=== PATIENT | female | born 1940 | race African-American/Black ===

== ENCOUNTER 2016-09-10 16:32 | Emergency (ER) | END 2016-09-10 18:44 | disposition home or self-care (01) | DX: J20.9 Acute bronchitis, unspecified (principal); J45.909 Unspecified asthma, uncomplicated; Z87.891 Personal history of nicotine dependence ==

== ENCOUNTER → 2016-09-23 | Outpatient (CLI) | payer MEDICARE, OTHER ==
[~2016-09-23] MED LIST: ALBU8.5H3 IH; ALBU8.5H3 INH; AZIT250T94 PO; BUSP10TA2 PO; CETI10CA PO; DOCU-144 PO; ESOM20CA PO; FLUT16SP24 NASAL; FLUT9.9S NASAL; GABA300C16 PO; HYDR30CR91 RC; IBUP400T22 PO; LORA-404 PO; PARO20TA58 PO; PRED50TA PO; PROM5SYR2 PO; RANI150C11 PO; SERT-165 PO; TEMA30CA PO
--- NOTE | 2016-09-25 07:50 | RADRPT ---
PROCEDURE: XR Knee. CLINICAL INDICATION: Right knee pain. TECHNIQUE: Three views of the right knee are available for review. COMPARISON: 04/08/2016. FINDINGS: There is moderate osteoarthrosis involving the right medial tibial femoral compartment and patellofe moral compartment and mild osteoarthrosis involving the lateral tibio-femoral compartment with assoc iated with joint space narrowing, subchondral sclerosis and osteophytosis. No acute fracture or dislocation is seen. No radiopaque foreign body is identified. Alignment is a natomic. No significant soft tissue swelling is present. Small suprapatellar effusion is noted. IMPRESSION: 1. No acute fracture or dislocation is seen. 2. Moderate osteoarthrosis of medial tibial femoral compartment and patellofemoral compartment and mild osteoarthrosis involving the lateral tibio-femoral compartment. 3. Small suprapatellar effusion. RPTAT: QQ .Costa Ashley MD, Date Time Electronically viewed and signed by .Costa Ashley MD, on 09/25/2016 07:50 .N/
== END | disposition home or self-care (01) ==
LOC: HKI 14:59
PROVIDERS: ATTEND Orthopaedic Surgery
DX: M17.0 Bilateral primary osteoarthritis of knee (principal); M25.561 Pain in right knee
CPT/HCPCS: 20610; 73564; G0463; J1030

== ENCOUNTER → 2017-03-31 | Outpatient (CLI) | END | disposition home or self-care (01) | DX: M25.561 Pain in right knee (principal); M17.0 Bilateral primary osteoarthritis of knee | CPT/HCPCS: 77073; G0463 ==

== ENCOUNTER 2017-04-03 11:36 | Inpatient (IN) | payer MEDICARE, OTHER ==
--- NOTE | 2017-04-02 00:40 | PREOPHP ---
DATE OF ADMISSION: 04/03/2017 CHIEF COMPLAINT: Pain in her right knee duration 5 years. HISTORY OF PRESENT ILLNESS: Approximately 5 years ago this patient tripped and fell, she injured her right knee. She has been having difficulty with it ever since. She has been seen in consultation by Dr. Dominguez, he feels that the patient needs a total right knee replacement because of severe arthritis. The patient accordingly presents to the hospital at this time for this procedure. FAMILY HISTORY: Mother at 97 of colon cancer. Father at 82 of a hemorrhage due to the fact he was taking Coumadin. The patient has one brother alive and well and four sisters alive and well. Mother of cancer of the colon and that is the only history of cancer in the family. No family history of liver cirrhosis. One sister has diabetes mellitus. SOCIAL HISTORY: The patient no longer smokes. She does not use alcoholic beverages excessively. PAST MEDICAL HISTORY: Serious accidents: The patient fell and injured her right knee 5 years ago. Serious illnesses: None. PAST SURGICAL HISTORY: Appendectomy at 22 years of age, cholecystectomy at age 72. MEDICATIONS: The patient takes the following drugs: Nortriptyline 10 mg daily, Lipitor 10 mg daily, Colace 100 mg twice a day, aspirin 81 mg daily, ranitidine 150 mg daily, ibuprofen 600 mg 3 times a day p.r.n. pain, Proctozone HC 2.5 percent rectal cream p.r.n. rectal irritation, Nitrostat 0.4 mg sublingually p.r.n. chest pain, Lumigan 0.01 percent eye drops. ALLERGIES: SHE IS ALLERGIC TO PENICILLIN. REVIEW OF SYSTEMS: CARDIOVASCULAR: The patient does not have hypertension. She does have hypotension and runs a low systolic blood pressure. No history of heart disease. The was seen in cardiac consultation for clearance for surgery by Dr. Ahmadi, her drafter topographical. RESPIRATORY: No history of pneumonia or tuberculosis. The patient does have asthma. GASTROINTESTINAL: The patient had peptic ulcer disease approximately 50 years ago. The patient had a cholecystectomy at age 72. No history of hepatitis, jaundice, pancreatitis, ileitis, colitis or hematemesis. The patient does have blood in her stool which she attributes to hemorrhoids. She had her last episode of blood in the stool approximately 3 months ago. The patient was advised to see a digital tech after she recovers from the surgery and have a colonoscopy. MUSCULOSKELETAL: No fractures of the bones. No history of CVA. No history of paralysis or comvulsions. No history of emotional disorder. No history of cystitis, [____], pyelonephritis or other general tract disorder. PHYSICAL EXAMINATION: GENERAL APPEARANCE: The patient is a well-developed female who does not appear acutely or chronically ill. VITAL SIGNS: Blood pressure is 97/57, pulse 86, temperature 97.6, respirations 16 per minute, weight 197 pounds. SKIN: No evidence of dermatitis. NECK: Supple. Thyroid is not palpable. HEAD: Head is symmetrical with no evidence of injury or deformity. EYES: PERRLA. EOMs normal. Discs flat. [____] is grossly intact. EAR/NOSE/THROAT: Clear. BREASTS: No masses. HEART: PMI in the left 5th intercostal space at the, left midclavicular line. No murmurs. No thrills. No bruits. A2 is greater than P2. No distention of jugular veins. No ankle edema. Under jugular reflex is not present. Chest clear to A and P. ABDOMEN: Liver, kidney and spleen not palpable. Bowel sounds are normal. There are no intra-abdominal masses or bruits. PELVIC/RECTAL: Deferred. [____] rectal approximately 8 months ago. Negative result. MUSCULOSKELETAL: Pain in the right knee. The patient did have a total right knee replacement because of an old injury 5 years ago with a fall. EXTREMITIES: Peripheral vascular no carotid or subclavian bruits. Femoral and dorsal pedal pulses normal and equal bilaterally. Posterior tibial pulses absent bilaterally. NEUROLOGIC: DTRs normal and equal bilaterally. Plantars are flexor. No pathological reflexes are present. The patient is well oriented to time, place and person. IMPRESSION: 1. Severe arthritis, right knee. 2. Hypotension. 3. History of anxiety reaction. 4. Gastrointestinal reflux disease. 5. Insomnia. 6. Hyperlipidemia. 7. Anemia. PLAN: The patient was cleared by her drafter topographical for the proposed surgery. Dictated By: Alberto Iraheta MD /akbar/quin /Document#: [id number]
[2017-04-03] VITALS (20 sets, daily range): BP systolic 90–127; BP diastolic 51–93; PULSE 80–88; RESP 15–28; Ht 170.2 cm; Wt 86.4 kg
[~2017-04-03] VITALS: Ht 170.2 cm; Wt 86.4 kg
[~2017-04-03 11:36] MED LIST changes: +BISA-57; +BUSP10TA2; +DOCU100C PO; +ESOM40CA PO; +FLUT16SP24 NS; +LORA-408; +LORA-408 PO; +OMEP20CA16; +PARO20TA58; +RANI150T5 PO; +TEMA30CA6; +VASOPRESSIN 20 UNITS INJ ONE; +albuterol; +albuterol inh; +ranitidine; +tramadol
[2017-04-03] MEDS: traMADol 50 MG TAB PO SCH ×2 (12:00→18:00)
[2017-04-03] MEDS ORDERED: VANCOMYCIN 1 GM/NS 250 ML X1 BEFORE INCISION IVPB SCH ×2 (12:38→14:30)
[2017-04-03] MEDS ORDERED: CELECOXIB 400 MG PO X1 DOSE PO SCH (13:00)
[2017-04-03] MEDS ORDERED: PREGABALIN 300 MG PO X1 PO SCH (13:00)
[2017-04-03] MEDS ORDERED: traMADOL 50 MG TAB X 1 DOSE PO SCH (13:00)
[2017-04-03] MEDS ORDERED: oxyCODONE (CR) 10 MG TAB [oxyCONTIN] X1 DOSE PO SCH (13:00)
[2017-04-03] MEDS ORDERED: BUPIVACAINE LIPOSOME/PF 266 MG/20 ML VIAL INFIL SCH (13:00)
[2017-04-03] MEDS ORDERED: ONDANSETRON 4 MG IV X 1 DOSE IV SCH (13:00)
[2017-04-03] MEDS ORDERED: PROPOFOL 20 ML ONE (14:04)
[2017-04-03] MEDS ORDERED: NEOSTIGMINE 3 MG/3 ML SYRINGE ONE (14:04)
[2017-04-03] MEDS ORDERED: FENTAnyl 50 MCG/ML VIAL ONE (14:04)
[2017-04-03] MEDS ORDERED: GLYCOPYRROLATE 0.4 MG INJ ONE (14:04)
[2017-04-03] MEDS ORDERED: CEFAZOLIN 1 GM INJ ONE (14:04)
[2017-04-03] MEDS ORDERED: ROCURONIUM 50 MG INJ ONE (14:04)
[2017-04-03] MEDS ORDERED: ONDANSETRON 4 MG INJ ONE (14:05)
[2017-04-03] MEDS ORDERED: PROPOFOL 100 ML ONE (14:05)
[2017-04-03] MEDS ORDERED: DEXAMETHASONE 4 MG/ML 1 ML INJ ONE (14:05)
[2017-04-03] MEDS ORDERED: ETOMIDATE 20 MG INJ ONE (14:05)
[2017-04-03] MEDS ORDERED: MIDAZOLAM 1 MG/ML 2 ML INJ ONE (14:05)
[2017-04-03] MEDS ORDERED: LACTATED RINGER'S 1,000 ML IV SCH (14:30)
[2017-04-03] MEDS ORDERED: SOD CHLORIDE 0.9% IVPB SCH (14:30)
[2017-04-03] MEDS ORDERED: SOD CHLORIDE 0.9% IV SCH (14:30)
[2017-04-03] MEDS ORDERED: PAIN COCKTAIL - VANCOMYCIN IRR SCH ×7 (14:30)
[2017-04-03] MEDS ORDERED: TRANEXAMIC ACID IV SCH (14:30)
[2017-04-03] MEDS ORDERED: TRANEXAMIC ACID IVPB SCH (14:30)
[2017-04-03] MEDS ORDERED: EXPAREL NOTE (BUPIVICAINE LIPOSOMAL) XX SCH (14:30)
[2017-04-03] MEDS ORDERED: VANCOMYCIN 1 GM INJ ONE ×3 (14:35→16:24)
[2017-04-03] MEDS ORDERED: POLYMYXIN B 500000 UNIT INJ ONE (14:35)
[2017-04-03] MEDS ORDERED: SODIUM CL BACTERIOSTATIC 30 ML INJ ONE (14:36)
--- NOTE | 2017-04-03 14:42 | HPN ---
Date/Time of Note Date/Time of Note DATE: 04/03/17 TIME: 14:42 Interval H&P Admission Note Pt. seen H&P reviewed: No system changes No changes from H&P on 04/01/17 by CASSIA Ann MD Apr 03, 2017 14:42
--- NOTE | 2017-04-03 14:52 | PDOCDIS ---
Discharge Instructions DIAGNOSIS Discharge Diagnosis s/p right anterior AMINAH CONDITION Patient Condition: Good HOME CARE INSTRUCTIONS: Diet Instructions: Regular ACTIVITY: Activity Restrictions: Slowly Increase Activity Rest between Activity Avoid heavy lifting Do not operate Machinery Do not operate Power Tool Avoid Heavy Housework Keep Limb Elevated Weight Bearing Bathing Restrictions: Shower FOLLOW UP/APPOINTMENTS Follow-up Plan follow up in the office on 04/14/17 KATHRIN ARMANDO PA-C Apr 03, 2017 14:51
[2017-04-03] MEDS ORDERED: BACITRACIN 50000 UNITS INJ IRR ONE (16:33)
[2017-04-03] MEDS ORDERED: VANCOMYCIN 1 GM INJ IVPB ONE (16:34)
[2017-04-03] MEDS ORDERED: ONDANSETRON 4 MG INJ IV PRN ×2 (17:30→18:00)
[2017-04-03] MEDS ORDERED: FENTAnyl 50 MCG/ML VIAL IV PRN ×3 (17:30)
[2017-04-03] MEDS ORDERED: DIPHENHYDRAMINE 50 MG INJ IV PRN (17:30)
[2017-04-03] MEDS ORDERED: MIDAZOLAM 1 MG/ML 2 ML INJ IV PRN (17:30)
[2017-04-03] MEDS ORDERED: LABETALOL HCL 20MG INJ IV PRN (17:30)
[2017-04-03] MEDS ORDERED: ALBUTEROL 0.083% (NEB) 2.5 MG/3 ML AMP HHN PRN (17:30)
[2017-04-03] MEDS ORDERED: hydrALAzine 20 MG INJ IV PRN (17:30)
[2017-04-03] MEDS ORDERED: EPHEDrine SULFATE 50 MG/5 ML SYG IV PRN (17:30)
[2017-04-03] MEDS ORDERED: MEPERIDINE 25 MG INJ IV PRN (17:30)
[2017-04-03] MEDS ORDERED: HYDROmorphONE (0.2 MG/ML) 10ML SYG IV PRN ×3 (17:30)
[2017-04-03] MEDS ORDERED: OXYCODONE/ACETAMINOPHEN (5/325) TAB PO PRN ×2 (17:30)
[2017-04-03] MEDS ORDERED: TRIMETHOBENZAMIDE 100 MG/ML VIAL IM PRN (17:30)
[2017-04-03] MEDS ORDERED: IPRATROPIUM (NEB) 0.5 MG/2.5 ML AMP HHN PRN (17:30)
--- NOTE | 2017-04-03 17:51 | OPR ---
Date/Time of Note Date/Time of Note DATE: 04/03/17 TIME: 17:47 Operative Report Procedure Description DATE: 04/03/2017 PREOPERATIVE DIAGNOSIS: Right knee osteoarthritis POSTOPERATIVE DIAGNOSIS: Right knee osteoarthritis OPERATION PERFORMED: Right total knee arthroplasty. SURGEON: Cassia Londono MD AREA MECHANIC: Jermaine Yuan PA-C COMPONENTS USED: DePuy Attune size 5 cruciate retaining femoral component, size 5 tibial baseplate, 6 mm polyethylene insert, 35 patellar button ANESTHESIA: Spinal plus general endotracheal intubation, plus periarticular injection ANESTHESIOLOGIST: Anthony Patel M.D. TOURNIQUET TIME: 54 minutes. ESTIMATED BLOOD LOSS: 50 cc INTRAVENOUS FLUIDS: 3,000 cc crystalloid SPECIMENS: Bone and soft tissue. DRAINS: Hemovac x1. COMPLICATIONS: None. DISPOSITION: The patient tolerated the procedure well and was taken to the recovery room in stable condition. INDICATIONS: The patient is a 76-year-old woman who has had worsening pain in the right knee with radiographic evidence of severe osteoarthritis. She has failed nonsurgical means of treatment to address her pain including activity modifications, pain medications, intra-articular injections, and ambulatory assist devices. Despite these measures she has had worsening pain. I felt the patient would benefit from a total knee arthroplasty. The risks, benefits, and alternatives of the procedure were explained in detail to the patient. I explained the risks of the surgery to include but not be limited to, bleeding and possible need for blood transfusion; infection; pain; stiffness; neurovascular injury with possible numbness, weakness, and/or paralysis anywhere from the knee down to the toes; fracture; instability; dislocation; wear and/or loosening of the prosthesis and possible need for future revision; blood clots; pulmonary embolism; and anesthetic complications such as heart attack, stroke, GI bleed, pneumonia, and/or . Ample time was allowed for the patient to ask questions, all of which were addressed and answered. The patient understood the risks involved and wished to proceed. Informed consent was signed prior to the procedure. PROCEDURE: The patient's right knee was initialed with a marking pen in the preoperative area to identify the correct operative site. The patient was brought to the operating room and transferred from the [facility] to the operating table where a spinal anesthetic was administered. The patient was then anesthetized and intubated. A Wesley catheter was placed. A timeout was performed to confirm that the right leg was the correct operative site. The patient was given 2 g of Ancef within one hour prior to the procedure. A tourniquet was placed on the operative proximal thigh. The operative knee and lower extremity were prepped and draped in the usual sterile fashion. The operative lower extremity was elevated and exsanguinated with an Esmarch tourniquet. The proximal thigh tourniquet was inflated to 300 mmHg. The knee was flexed. A midline incision was made and carried down through the subcutaneous tissue and fat with sharp dissection. Limited medial and lateral flaps were raised. A medium parapatellar approach was performed. Synovial fluid was normal in color and consistency. The patella was everted and the knee flexed. There were severe tricompartmental osteoarthritic changes noted. A medial release was performed at the joint line to the midcoronal plane. The ACL and remnants of the menisci were excised. The PCL was in tact and preserved. The stepped drill was used to open up the femoral canal which was irrigated and sucked dry. The intramedullary guide oscar was passed up the femur, and the distal cutting block was pinned into place for a 5 degree valgus cut, taking 10 mm of bone off distally. The oscillating saw was used to make the cut. The tibia was subluxed anteriorly. The tibial cutoff jig was placed over the center of the talus distally and over the junction of the medial and middle third of the tibial tubercle proximally. The guide was pinned into place and the oscillating saw was used to make the cut. The tibia was sized. The extension gap was checked and accommodated a 6 mm spacer block with the knee in full extension. There was no varus or valgus instability. At this point, the femur was sized with the posterior referencing guide. Two holes were drilled in 3 degrees of external rotation. The two holes were in line with the transepicondylar axis, perpendicular to Mecca's line, and in line with the tibial cutoff jig brought up with the knee flexed 90 degrees and tensed with 2 lamina spreaders, suggesting the femoral rotation was correct. The four-in-one cutting block was pinned into place. The anterior and posterior cuts and chamfer cuts were made with the oscillating saw. The flexion gap was checked and accommodated the 6 mm spacer block at 90 degrees. There was no varus or valgus instability, suggesting the flexion and extension gaps were now equal. The sulcus was cut out on the femur. The tibia was drilled and punched in proper rotation. Trial components were placed into position with a trial insert. The patella was cut down to 14 mm and sized. Three holes were drilled and the trial button placed in position. With all the trials now in place, the knee was taken through range of motion and came to full extension as evidenced by the fact that with the foot on my abdomen and axial loading, there was no tendency for the knee to flex. The knee was able to be flexed to 125 degrees with good patellar tracking with no lateral tilt or subluxation. At this point, I was satisfied with the overall range of motion, stability, and patellar tracking. The trials were removed. The real components were opened. Two bags of cement were mixed, one with and one without premixed antibiotic. The knee was irrigated with antibiotic saline and sucked dry. Once the cement was in a doughy stage, the real components were cemented into place. The knee was held in full extension, and the patellar component was held with a patellar clamp. All excess cement was removed with curettes. As the cement was hardening, the synovial/capsular layer was infiltrated with a mixture of 150 mg of 0.5% Bupivacaine, 8 mg of Duramorph, 300 mcg of epinephrine, 30 mg of Toradol, 100 mcg of clonidine, 750 mg of cefuroxime and 86 mL of normal saline, followed by an injection of 266 mg of liposomal Bupivacaine. A Hemovac drain was placed in the deep portion of the wound and brought out the anterolateral thigh. Once the cement was completely hardened, the trial liner was removed, and the real insert was opened. The tourniquet was let down, and there was good hemostasis. The knee was then irrigated with a mixture of betadine/saline and then antibiotic saline with pulsatile lavage. The real insert was impacted into the tibia and reduced onto to the femur. The arthrotomy was closed with a few interrupted #1 Ethibond in a figure-of- eight fashion, and then closed in a watertight fashion with a running #2 Stratafix suture. Knee flexion was checked against gravity and came to 125 degrees. The subcutaneous layer was irrigated and closed with 2-0 Statafix, and then 3-0 Vicryl and then rosemarie on the skin. The wound was covered with an occlusive dressing, and secured with cast padding and a bias dressing. The drain was secured with 3-0 nylon. The sponge and needle counts were correct at the end of the case. The patient was then awakened, extubated, and taken to the recovery room in stable condition. CASSIA LONDONO MD Apr 03, 2017 17:51
--- NOTE | 2017-04-03 17:53 | PN ---
Date/Time of Note Date/Time of Note DATE: 04/03/17 TIME: 17:52 Assessment/Plan Lines/Catheters IV Catheter Type (from Nrsg): Peripheral IV Assessment/Plan Assessment/Plan Stable in PACU, s/p right TKA -continue Ancef -pain meds as needed -ASA/SCDs -OOB with PT -monitor drain -check AM labs -d/c triplett in AM XR of the right knee is pending at this time Subjective 24 Hr Interval Summary Stable in PACU. Emotional in bed. Denies pain. Moving all extremities. Exam/Review of Systems Vital Signs Vitals Vital Signs Date Time Temp Pulse Resp B/P Pulse Ox O2 Delivery O2 Flow Rate FiO2 04/03/17 13:39 98.3 81 19 90/66 99 Room Air Exam Free Text/Dictation Hemovac: minimal Dressing dry Incision clean, dry, and intact without redness or drainage Thigh soft 5/5 Quadriceps, Tibialis Anterior, EHL, Gastroc, Soleus, Peroneals Normal sensation Palpable DT/PT, CR <2 sec No distal edema KATHRIN ARMANDO PA-C Apr 03, 2017 17:53
[2017-04-03] MEDS ORDERED: HYDR-3605 PO (17:54)
[2017-04-03] MEDS ORDERED: TRAM50TA2 PO (17:54)
[2017-04-03] MEDS ORDERED: ASPI325T32 PO (17:54)
[2017-04-03] MEDS ORDERED: AZITHROMYCIN 250 MG TAB PO SCH (18:00)
[2017-04-03] MEDS ORDERED: DIPHENHYDRAMINE 25 MG CAP PO PRN (18:00)
[2017-04-03] MEDS ORDERED: HYDROmorphONE 1 MG/ML SYG IV PRN (18:00)
[2017-04-03] MEDS ORDERED: BISACODYL 10 MG SUPP PR PRN (18:00)
[2017-04-03] MEDS ORDERED: NA PHOSPHATE/BIPHOS 133 ML ENEMA PR PRN (18:00)
[2017-04-03] MEDS ORDERED: NACL 0.9% 3 ML SYG IV SCH (18:00)
[2017-04-03] MEDS ORDERED: ASPIRIN (EC) 325 MG TAB PO ONE (18:00)
[2017-04-03] MEDS: PANTOPRAZOLE (EC) 40 MG TAB PO SCH (18:00)
[2017-04-03] MEDS: CEFAZOLIN 2 GM/50 ML (PMX) 50 ML IVPB SCH (18:10)
[2017-04-03 18:17] LABS: HEMATOCRIT 36.1 % (37.0-47.0); HEMOGLOBIN 11.6 g/dl (12.0-16.0)
[2017-04-03 18:45] LABS: CALCIUM 8.4 mg/dl (8.4-10.2); CREATININE 0.86 mg/dl (0.44-1.00); POTASSIUM 4.4 mmol/L (3.5-5.1)
--- NOTE | 2017-04-03 19:11 | RADRPT ---
PROCEDURE: X-ray right knee CLINICAL INDICATION: Postoperative for right knee arthroplasty. TECHNIQUE: AP and lateral views of the right knee COMPARISON: None FINDINGS: Total right knee arthroplasty with patellar resurfacing. Post surgical air and fluid over the knee with post surgical drain in place. No evident acute fracture. IMPRESSION: No evident hardware complication or acute fracture. RPTAT: [facility]U Physician Vanesa Date Time Electronically viewed and signed by Physician Vanesa on 04/03/2017 19:10 RS/
[2017-04-03] MEDS: LACTATED RINGER'S 1,000 ML IV SCH (19:56)
[2017-04-03] MEDS ORDERED: TRANEXAMIC ACID 860 MG in SOD CHLORIDE 0.9% 100 ML IVPB ONE (21:00)
[2017-04-03] MEDS: BUSPIRONE 10 MG TAB PO SCH (21:34)
[2017-04-03] MEDS: DOCUSATE SODIUM 100 MG CAP PO SCH (21:34)
[2017-04-03] MEDS: RANITIDINE 150 MG TAB PO SCH (21:34)
[2017-04-03] MEDS: PREGABALIN 50 MG CAP PO SCH (21:34)
[2017-04-04] MEDS ORDERED: TRANEXAMIC ACID 860 MG in SOD CHLORIDE 0.9% 100 ML IVPB ONE ×2
[2017-04-04 00:52] VITALS: BP 92/54; RESP 20
[2017-04-04] MEDS: LACTATED RINGER'S 1,000 ML IV SCH ×3 (01:42→16:35)
[2017-04-04] MEDS: CEFAZOLIN 2 GM/50 ML (PMX) 50 ML IVPB SCH ×2 (02:47→10:50)
[2017-04-04 05:13] LABS: HEMATOCRIT 33.9 % (37.0-47.0); HEMOGLOBIN 10.8 g/dl (12.0-16.0)
[2017-04-04 05:31] LABS: CALCIUM 8.7 mg/dl (8.4-10.2); CREATININE 0.86 mg/dl (0.44-1.00); POTASSIUM 5.6 mmol/L (3.5-5.1)
[2017-04-04] MEDS: traMADol 50 MG TAB PO SCH ×5 (06:27→23:52)
[2017-04-04] MEDS: PANTOPRAZOLE (EC) 40 MG TAB PO SCH ×3 (06:27→18:02)
[2017-04-04 08:18] VITALS: BP 120/67; RESP 18
[2017-04-04] MEDS: BUSPIRONE 10 MG TAB PO SCH ×2 (08:48→21:34)
[2017-04-04] MEDS: PREGABALIN 50 MG CAP PO SCH ×2 (08:49→21:41)
[2017-04-04] MEDS: PAROXETINE 20 MG TAB PO SCH (08:49)
[2017-04-04] MEDS: DOCUSATE SODIUM 100 MG CAP PO SCH ×2 (08:49→21:34)
[2017-04-04] MEDS: LORATADINE 10 MG TAB PO SCH (08:49)
[2017-04-04] MEDS: SERTRALINE 100 MG TAB PO SCH (08:49)
[2017-04-04] MEDS: ASPIRIN (EC) 325 MG TAB PO SCH ×2 (08:49→21:34)
[2017-04-04] MEDS: RANITIDINE 150 MG TAB PO SCH ×2 (08:49→21:36)
--- NOTE | 2017-04-04 08:56 | PN ---
Date/Time of Note Date/Time of Note DATE: 04/04/17 TIME: 08:55 Assessment/Plan Lines/Catheters IV Catheter Type (from Nrsg): Peripheral IV Wesley in Place (from Nrsg): Yes Assessment/Plan Assessment/Plan Stable POD #1, s/p right TKA -d/c Ancef -pain meds as needed -ASA/SCDs -OOB with PT -drain removed -check AM labs -d/c planning for [facility] Subjective 24 Hr Interval Summary No acute overnight events. Denies significant pain. Did not start PT yesterday. VSS, afebrile. Will plan to go to [facility] upon discharge. Exam/Review of Systems Vital Signs Vitals Vital Signs Date Time Temp Pulse Resp B/P Pulse Ox O2 Delivery O2 Flow Rate FiO2 04/04/17 08:18 99.6 89 18 120/67 100 04/03/17 20:10 Nasal Cannula 2.0 Intake and Output 04/03/17 04/03/17 04/04/17 14:59 22:59 06:59 Intake Total 3200 ml 1767.2 ml Output Total 775 ml 1700 ml Balance 2425 ml 67.2 ml Exam Free Text/Dictation Hemovac: 125cc Dressing dry Incision clean, dry, and intact without redness or drainage Thigh soft 5/5 Quadriceps, Tibialis Anterior, EHL, Gastroc, Soleus, Peroneals Normal sensation Palpable DT/PT, CR <2 sec No distal edema Results Result Diagram: 04/04/17 0436 04/04/17 0436 KATHRIN ARMANDO PA-C Apr 04, 2017 08:56
[2017-04-04 09:25] LABS: ADD UMIC YES; UR ASCORBIC ACID 20 mg/dL (NEGATIVE); UR BILIRUBIN (Dip) NEGATIVE (NEGATIVE); UR BLOOD (Dip) NEGATIVE (NEGATIVE); UR CLARITY CLEAR (CLEAR); UR COLOR STRAW (YELLOW); UR GLUCOSE (Dip) NEGATIVE (NEGATIVE); UR KETONES (Dip) NEGATIVE (NEGATIVE); UR LEUKOCYTE ESTERASE (Dip) TRACE Leu/ul (NEGATIVE); UR NITRITE (Dip) NEGATIVE (NEGATIVE); UR RBC 2 /HPF (0-5); UR SPECIFIC GRAVITY (Dip) 1.012 (1.003-1.030); UR TOTAL PROTEIN (Dip) NEGATIVE (NEGATIVE); UR UROBILINOGEN (Dip) NEGATIVE (NEGATIVE)
[2017-04-04] MEDS: HYDROCODONE/APAP (7.5/325) TAB PO PRN ×3 (10:45→21:34)
[2017-04-04] MEDS ORDERED: BIMA2.5D BOTH EYES (11:24)
[2017-04-04 13:30] VITALS: BP 124/61; RESP 18
--- NOTE | 2017-04-04 16:12 | CONS ---
Date/Time of Note Date/Time of Note DATE: 04/04/17 TIME: 15:31 Assessment/Plan Assessment/Plan Problems: (1) GERD (gastroesophageal reflux disease) Status: Chronic Comment: History of severe and persistent reflux symptoms, continue current PPI and Zantac. (2) Hyperlipemia Status: Chronic Comment: Continue Lipitor when patient is able to tolerate oral meds. (3) Insomnia Status: Chronic Comment: Use Ambien for now but patient usually responds better to temazepam (4) Osteoarthritis of knee Status: Chronic Comment: Status post right total knee replacement. Continue postoperative plans as per orthopedic team, using aspirin 325 mg p.o. daily for DVT prophylaxis and cephalexin IV for infection prophylaxis. (5) Tremor Status: Acute Comment: most likely due to post-op stress in association with patient's underlying anxiety. Resume lorazepam as needed for anxiety. (6) Anxiety Status: Chronic Comment: Patient has history of recurrent anxiety manifested by chest pain, sob , and shakiness, being titrated off paxil and starting on zoloft so will continue low dose of both for now. Also continue low dose buspirone. Use lorazepam as needed for break through anxiety symptoms. (7) Hyperkalemia Status: Acute Comment: improving on LR hydration, will monitor for now and use Kayexalate only if needed. Consultation Date/Type/Reason Admit Date/Time Apr 03, 2017 at 11:36 Date of Consultation: Apr 04, 2017 Reason for Consultation Postoperative medical management in patient admitted for total knee replacement with multiple medical problems and new onset hyperkalemia Referring Provider: CASSIA LONDONO MD Hx of Present Illness 77-year-old high woman with progressive right knee pain and weakness for many years. Diagnosed with severe osteoarthritis by orthopedic Dr. Londono and is admitted for right total knee replacement. Patient has multiple medical problems and issues.. I am seeing her for internal medicine evaluation and postoperative medical management Patient apparently had an episode of postoperative rigors last night and tremors this morning as well as new onset hyperkalemia this a.m. Constitutional: no complaints, other (Mild lightheadedness this morning, resolved now.) Eyes: no complaints, other, redness, visual change, No discharge, No pain ENT: no complaints Respiratory: no complaints Cardiovascular: lightheadedness, no complaints, No chest pain, No edema, No orthopenea, No palpitations Gastrointestinal: no complaints Genitourinary: no complaints Musculoskeletal: no complaints Neurologic: other (tremors and shakes this morning, resolved) Endocrine: no complaints Psychological: anxiety Past Medical History Medical History: GERD, high cholesterol, irritable bowel syndrome, other ( Generalized anxiety disorder and chronic insomnia) Past Surgical History Past Surgical Hx: other Family History Significant Family History: cancer (Mother of colon cancer in her late 80s ) Social History Alcohol Use: none Smoking Status: Former smoker Drug Use: none Exam/Review of Systems Vital Signs Vitals Vital Signs Date Time Temp Pulse Resp B/P Pulse Ox O2 Delivery O2 Flow Rate FiO2 04/04/17 13:30 98.1 77 18 124/61 94 04/03/17 20:10 Nasal Cannula 2.0 Intake and Output 04/03/17 04/03/17 04/04/17 15:00 23:00 07:00 Intake Total 3200 ml 1767.2 ml Output Total 775 ml 1700 ml Balance 2425 ml 67.2 ml Exam Constitutional: alert, oriented Psych: anxiety Head: atraumatic, normocephalic Eyes: EOMI, nl conjunctiva ENMT: nl lips & teeth, nl nasal mucosa & septum Neck: non-tender, supple Respiratory: clear to auscultation, normal air movement Cardiovascular: nl pulses, regular rate and rhythm Gastrointestinal: non-tender, soft Extremities: other (Right knee dressing and ice pack) Results Result Diagram: 04/04/17 0436 04/04/17 1250 Results 24 hrs Laboratory Tests Test 04/03/17 18:07 04/04/17 04:36 04/04/17 06:30 04/04/17 12:50 Hemoglobin 11.6 L 10.8 L Hematocrit 36.1 L 33.9 L Sodium Level 140 141 Potassium Level 4.4 5.6 H 5.3 H Chloride Level 101 101 Carbon Dioxide Level 28 28 Anion Gap 15 18 H Blood Urea Nitrogen 8 8 Creatinine 0.86 0.86 Glucose Level 117 123 Calcium Level 8.4 8.7 Urine Color STRAW Urine Clarity CLEAR Urine pH 5.0 Urine Specific Marshall 1.012 Urine Ketones NEGATIVE Urine Nitrite NEGATIVE Urine Bilirubin NEGATIVE Urine Urobilinogen NEGATIVE Urine Leukocyte Esterase TRACE A Urine Microscopic RBC 2 Urine Microscopic WBC 2 Urine Hemoglobin NEGATIVE Urine Glucose NEGATIVE Urine Total Protein NEGATIVE Medications Medications Current Medications Miscellaneous Information 1 ea NOTE XX ; Start 04/03/17 at 14:30; Stop 04/06/17 at 14:31 Buspirone HCl (Buspar) 10 mg BID PO Last administered on 04/04/17 08:48; Admin Dose 10 MG; Start 04/03/17 at 21:00 Paroxetine HCl (Paxil) 20 mg DAILY PO Last administered on 04/04/17 08:49; Admin Dose 20 MG; Start 04/04/17 at 09:00 Ranitidine HCl (Zantac) 150 mg BID PO Last administered on 04/04/17 08:49; Admin Dose 150 MG; Start 04/03/17 at 21:00 Sertraline HCl (Zoloft) 100 mg DAILY PO Last administered on 04/04/17 08:49; Admin Dose 100 MG; Start 04/04/17 at 09:00 Loratadine 10 mg 10 mg DAILY PO Last administered on 04/04/17 08:49; Admin Dose 10 MG; Start 04/04/17 at 09:00 Lactated Ringer's (Lr) 1,000 ml @ 125 mls/hr Q8H IV Last administered on 06:28; Admin Dose 125 MLS/HR; Start 04/03/17 at 17:42 Tramadol HCl (Ultram) 50 mg Q6 PO Last administered on 04/04/17 12:38; Admin Dose 50 MG; Start 04/03/17 at 12:00; Stop 04/06/17 at 11:59 Hydromorphone HCl (Dilaudid) 1 mg Q3H PRN IV PAIN LEVEL 8-10; Start 04/03/17 at 18:00 Ondansetron HCl (Zofran Inj) 4 mg Q6H PRN IV NAUSEA AND/OR VOMITING; Start at 18:00 Bisacodyl (Dulcolax Supp) 10 mg Q12H PRN GA CONSTIPATION; Start 04/03/17 at 18: 00 Magnesium Hydroxide (Milk Of Mag) 30 ml BID PRN PO CONSTIPATION; Start at 18:00 Sodium Biphosphate/ Sodium Phosphate (Fleet Enema) 133 ml DAILY PRN GA CONSTIPATION; Start 04/03/17 at 18:00 Docusate Sodium (Colace) 100 mg BID PO Last administered on 04/04/17 08:49; Admin Dose 100 MG; Start 04/03/17 at 21:00 Diphenhydramine HCl (Benadryl) 25 mg Q6H PRN PO PRURITUS; Start 04/03/17 at 18: 00 Acetaminophen/ Hydrocodone Bitart ([place] (7.5-325)) 1 tab Q4H PRN PO PAIN LEVEL 1-3 Last administered on 04/04/17 10:45; Admin Dose 1 TAB; Start at 18:00 Acetaminophen/ Hydrocodone Bitart ([place] (7.5-325)) 2 tab Q4H PRN PO PAIN LEVEL 4-7; Start 04/03/17 at 18:00 Aspirin (Ecotrin) 325 mg BID PO Last administered on 04/04/17 08:49; Admin Dose 325 MG; Start 04/04/17 at 09:00 Pantoprazole (Protonix Tab) 40 mg BID@18 PO Last administered on 04/04/17 06:27; Admin Dose 40 MG; Start 04/03/17 at 18:00 Pregabalin (Lyrica) 50 mg BID PO Last administered on 04/04/17 08:49; Admin Dose 50 MG; Start 04/03/17 at 21:00 Latanoprost (Xalatan) 1 drop HS BOTH EYES ; Start 04/04/17 at 21:00 MARIBELL DORANTES MD Apr 04, 2017 15:41
[2017-04-04] MEDS ORDERED: ZOLPIDEM 5 MG TAB PO PRN (20:00)
[2017-04-04] MEDS ORDERED: BIMATOPROST 0.01% 2.5 ML BTL BOTH EYES SCH (21:00)
[2017-04-04 21:08] VITALS: BP 136/68; RESP 22
[2017-04-04] MEDS: LATANOPROST 0.005% 2.5 ML OPH BOTH EYES SCH (21:34)
[2017-04-04] MEDS: LORAZEPAM 1 MG TAB PO PRN (23:51)
[2017-04-05] MEDS: LACTATED RINGER'S 1,000 ML IV SCH ×3 (01:42→17:42)
[2017-04-05 02:44] VITALS: BP 96/56; RESP 22
[2017-04-05] MEDS: PANTOPRAZOLE (EC) 40 MG TAB PO SCH ×2 (06:00→17:56)
[2017-04-05] MEDS: traMADol 50 MG TAB PO SCH ×3 (06:00→17:56)
[2017-04-05 06:04] LABS: HEMATOCRIT 30.8 % (37.0-47.0)
[2017-04-05 06:27] LABS: CALCIUM 8.5 mg/dl (8.4-10.2); CREATININE 0.96 mg/dl (0.44-1.00); POTASSIUM 4.5 mmol/L (3.5-5.1)
[2017-04-05] MEDS ORDERED: NORT25CA PO (07:57)
[2017-04-05 08:23] VITALS: BP 94/53; RESP 18
[2017-04-05] MEDS: DOCUSATE SODIUM 100 MG CAP PO SCH ×2 (09:28→20:43)
[2017-04-05] MEDS: RANITIDINE 150 MG TAB PO SCH ×2 (09:28→20:43)
[2017-04-05] MEDS: ASPIRIN (EC) 325 MG TAB PO SCH ×2 (09:29→20:43)
[2017-04-05] MEDS: SERTRALINE 100 MG TAB PO SCH (09:29)
[2017-04-05] MEDS: BUSPIRONE 10 MG TAB PO SCH ×2 (09:29→20:43)
[2017-04-05] MEDS: PAROXETINE 20 MG TAB PO SCH (09:29)
[2017-04-05] MEDS: LORATADINE 10 MG TAB PO SCH (09:29)
[2017-04-05] MEDS: PREGABALIN 50 MG CAP PO SCH ×2 (09:29→20:46)
[2017-04-05] MEDS: HYDROCODONE/APAP (7.5/325) TAB PO PRN ×2 (09:59→18:04)
[2017-04-05] MEDS: MAGNESIUM HYDROXIDE 30ML CUP PO PRN (10:03)
--- NOTE | 2017-04-05 11:07 | PN ---
Date/Time of Note Date/Time of Note DATE: 04/05/17 TIME: 11:06 Assessment/Plan Lines/Catheters IV Catheter Type (from Nrsg): Peripheral IV Wesley in Place (from Nrsg): No Assessment/Plan Assessment/Plan Stable, POD #2, s/p right TKA -pain meds as needed -ASA/SCDs -OOB with PT -check AM labs -dressing changed -plan to transfer to [facility] tomorrow Subjective 24 Hr Interval Summary No acute overnight events. Having minimal pain. Progressing with PT. VSS, afebrile. Will plan to transfer to [facility] tomorrow. Exam/Review of Systems Vital Signs Vitals Vital Signs Date Time Temp Pulse Resp B/P Pulse Ox O2 Delivery O2 Flow Rate FiO2 04/05/17 08:23 97.5 71 18 94/53 93 04/03/17 20:10 Nasal Cannula 2.0 Intake and Output 04/04/17 04/04/17 04/05/17 15:00 23:00 07:00 Intake Total 50 ml 980 ml 300 ml Balance 50 ml 980 ml 300 ml Exam Free Text/Dictation Dressing dry Incision clean, dry, and intact without redness or drainage Thigh soft 5/5 Quadriceps, Tibialis Anterior, EHL, Gastroc, Soleus, Peroneals Normal sensation Palpable DT/PT, CR <2 sec No distal edema Results Result Diagram: 04/05/17 0456 04/05/17 0455 KATHRIN ARMANDO PA-C Apr 05, 2017 11:07
[2017-04-05 14:00] VITALS: BP 110/62; RESP 18
[2017-04-05] MEDS: LATANOPROST 0.005% 2.5 ML OPH BOTH EYES SCH (20:46)
[2017-04-05] MEDS: LORAZEPAM 1 MG TAB PO PRN (23:11)
[2017-04-06] MEDS: LACTATED RINGER'S 1,000 ML IV SCH ×3 (01:42→17:42)
[2017-04-06 01:57] VITALS: BP 117/65; RESP 19
[2017-04-06] MEDS: PANTOPRAZOLE (EC) 40 MG TAB PO SCH ×2 (06:00→18:47)
[2017-04-06] MEDS: traMADol 50 MG TAB PO SCH ×2 (06:00)
[2017-04-06 07:05] LABS: HEMATOCRIT 36.2 % (37.0-47.0); HEMOGLOBIN 11.4 g/dl (12.0-16.0)
[2017-04-06 08:07] VITALS: BP 108/60; RESP 18
[2017-04-06 08:21] LABS: CALCIUM 8.5 mg/dl (8.4-10.2); CREATININE 0.98 mg/dl (0.44-1.00); POTASSIUM 4.7 mmol/L (3.5-5.1)
[2017-04-06] MEDS: PAROXETINE 20 MG TAB PO SCH (08:54)
[2017-04-06] MEDS: DOCUSATE SODIUM 100 MG CAP PO SCH ×2 (08:54→20:25)
[2017-04-06] MEDS: LORATADINE 10 MG TAB PO SCH (08:54)
[2017-04-06] MEDS: BUSPIRONE 10 MG TAB PO SCH ×2 (08:54→20:26)
[2017-04-06] MEDS: RANITIDINE 150 MG TAB PO SCH ×2 (08:55→20:26)
[2017-04-06] MEDS: PREGABALIN 50 MG CAP PO SCH ×2 (08:55→20:26)
[2017-04-06] MEDS: SERTRALINE 100 MG TAB PO SCH (08:55)
[2017-04-06] MEDS: ASPIRIN (EC) 325 MG TAB PO SCH ×2 (08:55→20:26)
[2017-04-06] MEDS: HYDROCODONE/APAP (7.5/325) TAB PO PRN ×3 (08:56→23:48)
[2017-04-06 14:00] VITALS: BP 101/75; RESP 18
[2017-04-06] MEDS: MAGNESIUM HYDROXIDE 30ML CUP PO PRN (14:19)
--- NOTE | 2017-04-06 15:17 | PN ---
Date/Time of Note Date/Time of Note DATE: 04/06/17 TIME: 15:16 Assessment/Plan Lines/Catheters IV Catheter Type (from Nrsg): Peripheral IV Wesley in Place (from Nrsg): No Assessment/Plan Assessment/Plan POD # 3. Stable. -Increase activity OOB -Pain meds -OOB with PT -ASA/SCDs -D/C to [facility] tomorrow Subjective 24 Hr Interval Summary Resting comfortably. Slightly more pain today. Exam/Review of Systems Vital Signs Vitals Vital Signs Date Time Temp Pulse Resp B/P Pulse Ox O2 Delivery O2 Flow Rate FiO2 04/06/17 08:07 98.8 101 18 108/60 92 04/03/17 20:10 Nasal Cannula 2.0 Intake and Output 04/05/17 04/05/17 04/06/17 15:00 23:00 07:00 Intake Total 1060 ml 350 ml Balance 1060 ml 350 ml Exam Free Text/Dictation Dressing dry Incision clean, dry, and intact without redness or drainage 5/5 Tibialis Anterior, EHL, Gastroc Soleus, Peroneals Normal sensation Palpable DP/PT, CR < 2 Sec No distal edema Results Result Diagram: 04/06/17 0432 04/06/17 0721 CASSIA LONDONO MD Apr 06, 2017 15:17
[2017-04-06 19:03] VITALS: BP 100/59; RESP 18
[2017-04-06] MEDS: LATANOPROST 0.005% 2.5 ML OPH BOTH EYES SCH (20:25)
[2017-04-06] MEDS: HYDROCORTISONE 25 MG SUPP PR SCH (20:25)
[2017-04-06] MEDS: LORAZEPAM 1 MG TAB PO PRN (20:44)
[2017-04-07] MEDS: LACTATED RINGER'S 1,000 ML IV SCH ×2 (01:42→09:42)
--- NOTE | 2017-04-07 03:19 | PN ---
Date/Time of Note Date/Time of Note DATE: 04/06/17 TIME: 18:12 Assessment/Plan VTE Prophylaxis VTE Prophylaxis Intervention: other (asa) Lines/Catheters IV Catheter Type (from Nrsg): Saline Lock [place] line still needed: No Urinary Cath still in place: No Assessment/Plan Assessment/Plan 1. s/p rt tkr 2. rectal bleed w/ hemorrhoids 3. obesity 4. bipolar/ insomnia 5. anemia--hgb higher than yesterday 6. htn ---per ortho, sched to be transferred to rehab center ---anusol w/ zach cream to area bid ---set up outpt [facility] [employer] for hemorrhoid resect ---hold severino's asa ---cont full pt exercises Subjective 24 Hr Interval Summary Free Text/Dictation "passed large amount blood into toilet bowl. I have a h/o having hemorrhoids" Exam/Review of Systems Vital Signs Vitals Vital Signs Date Time Temp Pulse Resp B/P Pulse Ox O2 Delivery O2 Flow Rate FiO2 04/06/17 19:03 97.8 87 18 100/59 96 04/03/17 20:10 Nasal Cannula 2.0 Intake and Output 04/06/17 04/06/17 04/07/17 15:00 23:00 07:00 Intake Total 940 ml Balance 940 ml Exam obese, lying in bed, rr, cta, rt knee dressed, ext hemorrhoids tender to palp but no cuts/ no active bleeding now Results Result Diagram: 04/06/17 0432 04/06/17 0721 Results 24 hrs Laboratory Tests Test 04/06/17 04:32 04/06/17 07:21 Hemoglobin 11.4 L Hematocrit 36.2 L Sodium Level 134 L Potassium Level 4.7 Chloride Level 99 Carbon Dioxide Level 30 Anion Gap 10 Blood Urea Nitrogen 15 Creatinine 0.98 Glucose Level 93 Calcium Level 8.5 Medications Medications Current Medications Buspirone HCl (Buspar) 10 mg BID PO Last administered on 04/06/17 20:26; Admin Dose 10 MG; Start 04/03/17 at 21:00 Paroxetine HCl (Paxil) 20 mg DAILY PO Last administered on 04/06/17 08:54; Admin Dose 20 MG; Start 04/04/17 at 09:00 Ranitidine HCl (Zantac) 150 mg BID PO Last administered on 04/06/17 20:26; Admin Dose 150 MG; Start 04/03/17 at 21:00 Sertraline HCl (Zoloft) 100 mg DAILY PO Last administered on 04/06/17 08:55; Admin Dose 100 MG; Start 04/04/17 at 09:00 Loratadine 10 mg 10 mg DAILY PO Last administered on 04/06/17 08:54; Admin Dose 10 MG; Start 04/04/17 at 09:00 Lactated Ringer's (Lr) 1,000 ml @ 125 mls/hr Q8H IV Last administered on 06:28; Admin Dose 125 MLS/HR; Start 04/03/17 at 17:42 Hydromorphone HCl (Dilaudid) 1 mg Q3H PRN IV PAIN LEVEL 8-10 Last administered on 04/05/17 20:46; Admin Dose 1 MG; Start 04/03/17 at 18:00 Ondansetron HCl (Zofran Inj) 4 mg Q6H PRN IV NAUSEA AND/OR VOMITING; Start at 18:00 Bisacodyl (Dulcolax Supp) 10 mg Q12H PRN [place] CONSTIPATION Last administered on 17:01; Admin Dose 10 MG; Start 04/03/17 at 18:00 Magnesium Hydroxide (Milk Of Mag) 30 ml BID PRN PO CONSTIPATION Last administered on 04/06/17 14:19; Admin Dose 30 ML; Start 04/03/17 at 18:00 Sodium Biphosphate/ Sodium Phosphate (Fleet Enema) 133 ml DAILY PRN [place] CONSTIPATION; Start 04/03/17 at 18:00 Docusate Sodium (Colace) 100 mg BID PO Last administered on 04/06/17 20:25; Admin Dose 100 MG; Start 04/03/17 at 21:00 Diphenhydramine HCl (Benadryl) 25 mg Q6H PRN PO PRURITUS; Start 04/03/17 at 18: 00 Acetaminophen/ Hydrocodone Bitart (Brainard (7.5-325)) 1 tab Q4H PRN PO PAIN LEVEL 1-3 Last administered on 04/05/17 18:04; Admin Dose 1 TAB; Start at 18:00 Acetaminophen/ Hydrocodone Bitart (Brainard (7.5-325)) 2 tab Q4H PRN PO PAIN LEVEL 4-7 Last administered on 04/06/17 23:48; Admin Dose 2 TAB; Start at 18:00 Aspirin (Ecotrin) 325 mg BID PO Last administered on 04/06/17 08:55; Admin Dose 325 MG; Start 04/04/17 at 09:00 Pantoprazole (Protonix Tab) 40 mg BID@18 PO Last administered on 04/06/17 18:47; Admin Dose 40 MG; Start 04/03/17 at 18:00 Pregabalin (Lyrica) 50 mg BID PO Last administered on 04/06/17 20:26; Admin Dose 50 MG; Start 04/03/17 at 21:00 Latanoprost (Xalatan) 1 drop HS BOTH EYES Last administered on 04/06/17 20:25 ; Admin Dose 1 DROP; Start 04/04/17 at 21:00 Lorazepam (Ativan) 1 mg Q8H PRN PO ANXIETY Last administered on 04/06/17 20:44 ; Admin Dose 1 MG; Start 04/04/17 at 20:00 Zolpidem Tartrate (Ambien) 5 mg HS PRN PO INSOMNIA Last administered on 22:29; Admin Dose 5 MG; Start 04/04/17 at 20:00 Hydrocortisone (Anusol-Hc Supp) 25 mg BID FL Last administered on 04/06/17 20: 25; Admin Dose 25 MG; Start 04/06/17 at 21:00 DUSTIN FAIRBANKS MD Apr 07, 2017 03:19
--- NOTE | 2017-04-07 03:26 | CONS ---
Date/Time of Note Date/Time of Note DATE: 04/05/17 TIME: 13:20 Assessment/Plan Assessment/Plan Additional Assessment/Plan ---per ortho--full pt exercises ---cont anticoag ---cont especially psych supportive cares ---prep for outpt rehab transfer on 04/07 Consultation Date/Type/Reason Admit Date/Time Apr 03, 2017 at 11:36 Initial Consult Date 04/04/17 Reason for Consultation 1. s/p rt tkr 2. oa, obesity 3. htn 4. bipolar, insomnia Referring Provider: CASSIA LONDONO MD MAGDIDUSTIN Wild MD Apr 07, 2017 03:26
[2017-04-07] MEDS: PANTOPRAZOLE (EC) 40 MG TAB PO SCH (04:54)
[2017-04-07] MEDS: HYDROCODONE/APAP (7.5/325) TAB PO PRN (04:54)
[2017-04-07] MEDS: MAGNESIUM HYDROXIDE 30ML CUP PO PRN (04:54)
[2017-04-07 05:32] LABS: HEMOGLOBIN 9.5 g/dl (12.0-16.0)
[2017-04-07 06:02] LABS: INR 1.03; PROTIME 13.5 Sec (12.2-14.2); PT RATIO 1.1
[2017-04-07 06:10] LABS: CALCIUM 8.8 mg/dl (8.4-10.2); CREATININE 0.91 mg/dl (0.44-1.00); POTASSIUM 5.2 mmol/L (3.5-5.1)
[2017-04-07 07:34] VITALS: BP 102/55; RESP 20
--- NOTE | 2017-04-07 08:47 | PN ---
Date/Time of Note Date/Time of Note DATE: 04/07/17 TIME: 08:46 Assessment/Plan Lines/Catheters IV Catheter Type (from Nrsg): Saline Lock [place] in Place (from Nrsg): No Assessment/Plan Assessment/Plan Stable POD #4, s/p right TKA -pain meds as needed -ASA/SCDs -OOB with PT -dressing changed -transfer to [facility] today -follow up in the office in 1 week Subjective 24 Hr Interval Summary No acute overnight events. Denies significant pain. Progressing with PT. Stable for transfer to [facility] today. Exam/Review of Systems Vital Signs Vitals Vital Signs Date Time Temp Pulse Resp B/P Pulse Ox O2 Delivery O2 Flow Rate FiO2 04/07/17 07:34 97.9 74 20 102/55 98 04/03/17 20:10 Nasal Cannula 2.0 Intake and Output 04/06/17 04/06/17 04/07/17 14:59 22:59 06:59 Intake Total 940 ml 870 ml Output Total 850 ml Balance 940 ml 20 ml Exam Free Text/Dictation Dressing dry Incision clean, dry, and intact without redness or drainage Thigh soft 5/5 Quadriceps, Tibialis Anterior, EHL, Gastroc, Soleus, Peroneals Normal sensation Palpable DT/PT, CR <2 sec No distal edema Results Result Diagram: 04/07/17 0439 04/07/17 0439 KATHRIN ARMANDO PA-C Apr 07, 2017 08:47
--- NOTE | 2017-04-07 08:48 | PDOCDIS ---
Discharge Instructions DIAGNOSIS Discharge Diagnosis s/p right TKA CONDITION Patient Condition: Good HOME CARE INSTRUCTIONS: Diet Instructions: Regular ACTIVITY: Activity Restrictions: Slowly Increase Activity Rest between Activity Avoid heavy lifting Do not operate Machinery Do not operate Power Tool Avoid Heavy Housework Keep Limb Elevated Weight Bearing Bathing Restrictions: Shower FOLLOW UP/APPOINTMENTS Follow-up Plan follow up in the office on 04/11/17 KATHRIN ARMANDO PA-C Apr 07, 2017 08:48
[2017-04-07] MEDS: BUSPIRONE 10 MG TAB PO SCH (10:05)
[2017-04-07] MEDS: RANITIDINE 150 MG TAB PO SCH (10:06)
[2017-04-07] MEDS: SERTRALINE 100 MG TAB PO SCH (10:06)
[2017-04-07] MEDS: HYDROCORTISONE 25 MG SUPP PR SCH (10:06)
[2017-04-07] MEDS: PAROXETINE 20 MG TAB PO SCH (10:06)
[2017-04-07] MEDS: LORATADINE 10 MG TAB PO SCH (10:06)
[2017-04-07] MEDS: ASPIRIN (EC) 325 MG TAB PO SCH (10:06)
[2017-04-07] MEDS: DOCUSATE SODIUM 100 MG CAP PO SCH (10:07)
[2017-04-07] MEDS: PREGABALIN 50 MG CAP PO SCH (10:15)
--- NOTE | 2017-04-07 13:16 | DS ---
Date/Time of Note Date/Time of Note DATE: 04/07/17 TIME: 13:10 Discharge Summary Admission/Discharge Info Admit Date/Time Apr 03, 2017 at 11:36 Discharge Date/Time 04/07/2017 Discharge Diagnosis s/p right TKA Patient Condition: Good Procedures Right total knee arthroplasty Hospital Course This is a 77-year-old female who presented to clinic initially complaining of right knee pain. She underwent conservative modalities unsuccessfully, and is thought she would benefit from a right total knee arthroplasty. On 04/03/2017, the patient was admitted and taken to the operating room, where she underwent a right total knee arthroplasty. There were no intraoperative complications. The patient tolerated the procedure well. She was taken to recovery room in stable condition. Pain was well-controlled oral pain medication. She was started on aspirin and SCDs for DVT prophylaxis. She remained hemodynamically stable and neurovascularly intact throughout her hospital stay. She began physical therapy on postoperative day 1, and continue to make good progress. Ultimately she was deemed stable for transfer to [facility] on postoperative day 4. Prior to transfer, the incision was inspected and noted to be clean, dry , and intact. Dressing changes were done prior to patient being transferred. Discharge instructions: The patient will be transferred to [facility] in stable condition. She is to resume a normal diet. She is weightbearing as tolerated on the right lower extremity. [facility]. She will be discharged home with a medication noted, and is to resume all of her normal home medication. Patient is to call the office or go to emergency room for any concerns including increased redness, swelling, drainage, fever, or any concerns regarding the operation or site of incision. Home Meds Active Scripts Tramadol HCl (Tramadol HCl) 50 Mg Tablet, 50 MG PO Q6 for 30 Days, #60 TAB Prov:KATHRIN ARMANDO PA-C 04/03/17 Hydrocodone/Acetaminophen (Hydrocodon-Acetaminoph 7.5-325) 1 Each Tablet, 1 TAB PO Q4H Y for PAIN LEVEL 1-3 for 30 Days, #60 TAB Prov:KATHRIN ARMANDO PA-C 04/03/17 Aspirin (Aspir-Sabrina) 325 Mg Tablet.dr 325 MG PO BID for 40 Days, #80 Prov:KATHRIN ARMANDO PA-C 04/03/17 Cetirizine Hcl* (Zyrtec*) 10 Mg Capsule, 10 MG PO DAILY, #30 TAB.CHEW Prov:JOSE MANUEL ROMAN NP 09/10/16 Fluticasone Propionate (Flonase Allergy Relief) 9.9 Ml [place].susp, 2 SPRAY NASAL DAILY, #1 BOTTLE TO EACH NOSTRIL Prov:JOSE MANUEL ROMAN NP 09/10/16 Albuterol Sulfate* (Proair HFA*) 8.5 Gm Hfa.aer.ad, 2 PUFF INH Q4H Y for WHEEZING AND SOB, #1 INHALER Prov:JOSE MANUEL ROMAN [employer] SALES REPRESENTATIVE 09/10/16 Reported Medications Nortriptyline Hcl* (Nortriptyline Hcl*) 25 Mg Capsule, 25 MG PO HS, CAP 04/05/17 Bimatoprost* (Lumigan*) 0.01%-2.5 Ml Opht Drops, 1 DROP BOTH EYES HS, EA 04/04/17 Esomeprazole Mag Trihydrate (Nexium) 20 Mg Capsule.dr, 20 MG PO DAILY 06/06/12 Fluticasone Propionate* (Flonase* Nasal) 16 Gm [place].susp, 2 SPR NASAL DAILY Y 06/06/12 Hydrocortisone* Rectal (Protozone-HC*) 30 Gm Cr, 30 GM RC BID 06/05/12 Paroxetine Hcl* (Paxil*) 20 Mg Tablet, 20 MG PO DAILY 06/05/12 Albuterol Sulfate* (Proair HFA*) 8.5 Gm Hfa.aer.ad, 8.5 GM IH PRN 06/05/12 Docusate Sodium* (Colace*) 100 Mg Capsule, 100 MG PO BID 06/05/12 Ranitidine Hcl (Ranitidine Hcl) 150 Mg Capsule, 150 MG PO BID 06/05/12 Sertraline Hcl* (Sertraline Hcl*) 100 Mg Tablet, 100 MG PO DAILY 2 tabs daily 12/19/11 Buspirone Hcl* (Buspirone Hcl*) 10 Mg Tablet, 10 MG PO BID 12/19/11 Gabapentin* (Gabapentin*) 300 Mg Capsule, 300 MG PO TID 12/19/11 Discontinued Reported Medications Temazepam* (Temazepam*) 30 Mg Capsule, 30 MG PO HS 12/19/11 Lorazepam (Lorazepam) 2 Mg Tablet, 2 MG PO DAILY 12/19/11 Discontinued Scripts Prednisone* (Prednisone*) 50 Mg Tablet, 50 MG PO DAILY, #5 TAB Prov:JOSE MANUEL ROMAN NP 09/10/16 Promethazine HCl/Codeine (Prometh-Codein 6.25-10 mg/5 ml) 5 Ml Syrup, 5 ML PO Q6 , #60 ML Prov:JOSE MANUEL ROMAN NP 09/10/16 Azithromycin* (Zithromax*) 250 Mg Tablet, 250 MG PO .ZPACK DIRECTED, #6 TAB TAKE 500 MG (2 TABS) THE FIRST DAY THEN 250 MG (1 TAB) DAYS 2-5 Prov:JOSE MANUEL ROMAN NP 09/10/16 Ibuprofen* (Motrin*) 400 Mg Tab, 400 MG PO Q6H Y for PAIN AND OR ELEVATED TEMP, #30 TAB Prov:JOSE MANUEL ROMAN NP 09/10/16 Follow-up Plan Follow-up in the office on 04/11/2017 Primary Care Provider Ekta Bynum MD Pending Labs Laboratory Tests Test 04/07/17 04:39 Hemoglobin 9.5g/dl (12.0-16.0) Hematocrit 30.0% (37.0-47.0) Prothrombin Time 13.5Sec (12.2-14.2) Prothrombin Time Ratio 1.1 INR International Normalized Ratio 1.03 Sodium Level 139mmol/L (135-144) Potassium Level 5.2mmol/L (3.5-5.1) Chloride Level 98mmol/L (97-110) Carbon Dioxide Level 32mmol/L (21-31) Anion Gap 14 (8-16) Blood Urea Nitrogen 14mg/dl (7-20) Creatinine 0.91mg/dl (0.44-1.00) Glucose Level 105mg/dl (70-220) Calcium Level 8.8mg/dl (8.4-10.2) KATHRIN ARMANDO PA-C Apr 07, 2017 13:16
== END 2017-04-07 14:00 | DRG 470 ==
LOC: REC 11:36 → MS1 19:34
PROVIDERS: ADMIT Orthopaedic Surgery; ATTEND Orthopaedic Surgery
PROC: 0SRC0J9 Replacement of Right Knee Joint with Synthetic Substitute, Cemented, Open Approach (ICD-10-PCS; principal; 2017-04-03 14:30)
DX: M17.11 Unilateral primary osteoarthritis, right knee (principal); I95.9 Hypotension, unspecified; D64.9 Anemia, unspecified; E87.5 Hyperkalemia; K62.5 Hemorrhage of anus and rectum; K21.9 Gastro-esophageal reflux disease without esophagitis; Z79.82 Long term (current) use of aspirin; Z88.0 Allergy status to penicillin; J45.909 Unspecified asthma, uncomplicated; E78.5 Hyperlipidemia, unspecified; G47.00 Insomnia, unspecified; G25.2 Other specified forms of tremor; F41.1 Generalized anxiety disorder; Z87.891 Personal history of nicotine dependence; F31.9 Bipolar disorder, unspecified; E66.9 Obesity, unspecified; K64.9 Unspecified hemorrhoids
CPT/HCPCS: 73560; 80048; 81001; 84132; 85014; 85018; 85610; 86850; 86900; 86901; 86920; 87081; 87086; 88304; 88311; 97110; 97116; 97162; 97166; 97530; C1776; J0690; J1100; J1170; J2250; J2405; J2710; J3010; J3370; J7120

== ENCOUNTER → 2018-03-23 | Outpatient (CLI) | END | disposition home or self-care (01) ==

== ENCOUNTER 2018-05-19 11:38 | Day surgery (SDC) | END 2018-05-19 13:32 | disposition home or self-care (01) ==

== ENCOUNTER 2018-07-13 22:38 | Inpatient (IN) | END 2018-07-19 16:40 | disposition home health service (06) | DRG 872 ==

== ENCOUNTER → 2019-04-12 | Outpatient (CLI) | payer MEDICARE, OTHER ==
[~2019-04-12] MED LIST changes: -ALBU8.5H3 IH; -ALBU8.5H3 INH; +ALBU8.5H8 INH; +ASPI-535 PO; -AZIT250T94 PO; +BIMA2.5D BOTH EYES; -BISA-57; -BUSP10TA2; -BUSP10TA2 PO; -CETI10CA PO; +DEXL60CA2 PO; -DOCU-144 PO; -DOCU100C PO; -ESOM20CA PO; -ESOM40CA PO; -FLUT16SP24 NASAL; -FLUT16SP24 NS; -FLUT9.9S NASAL; +HYDR28.39 RC; -HYDR30CR91 RC; -IBUP400T22 PO; +LEVO500T48 PO; +LINA290C PO; -LORA-404 PO; -LORA-408; -LORA-408 PO; +LORA-444 PO; +MAGN296S40 PO; -OMEP20CA16; -PARO20TA58; -PARO20TA58 PO; -PRED50TA PO; -PROM5SYR2 PO; -RANI150T5 PO; -SERT-165 PO; +SERT50TA6 PO; +SUCR1TAB56 PO; -TEMA30CA6; +TRA100 PO; +TRAM50TA2 PO; -VASOPRESSIN 20 UNITS INJ ONE; -albuterol; -albuterol inh; -ranitidine; -tramadol
== END | disposition home or self-care (01) ==
LOC: RAD 15:33
PROVIDERS: ATTEND Internal Medicine
DX: R05 Cough (principal); R07.9 Chest pain, unspecified; J98.11 Atelectasis; J90 Pleural effusion, not elsewhere classified
CPT/HCPCS: 71046